=== PATIENT | female | born 1965 | race Caucasian/White ===

== ENCOUNTER → 2016-12-30 | Outpatient (CLI) | payer BC ==
[~2016-12-30] MED LIST: MISCCAP80 PO
--- NOTE | 2016-12-30 08:55 | DIAGNOSTIC IMAGING REPORT ---
L-SPINE MIN 4 VIEWS ROUTINE CLINICAL HISTORY: Low back pain COMPARISON STUDY: No previous studies for comparison. FINDINGS: No acute fractures or subluxations are visualized. There is mild disc space narrowing at the L4-5 level, and marked disc space narrowing at the L5-S1 level. There is no pathologic bowel dilatation. There are surgical clips projected over the right SI joint and in the right upper quadrant consistent with a prior cholecystectomy. There is a 3 mm calcification projected over the lower pole the right kidney on the AP film. A small renal calculus cannot be excluded although this is not visualized with certainty on the oblique films, a finding which favors overlying enteric contents IMPRESSION: 1. No fractures or subluxations identified 2. Degenerative changes at the L4-5 and L5-S1 levels. Electronically signed by: Randolph Escobar M.D. 12/30/2016 8:54 AM Dictated Date/Time: 12/30/2016 8:52 AM
[2016-12-30 11:00] LABS: BASO % 0.2 %; BASO ABS # 0.01 K/uL (0-0.2); COMPLETE YES; EOS % 2.2 %; HEMATOCRIT 44.6 % (37-47); LYMPH % 20.1 %; LYMPH ABS # 1.29 K/uL (1.2-3.4); MEAN CELL VOLUME 86.6 fL (80-100); MEAN CORPUSCULAR HEMOGLOBIN 29.3 pg (25-34); MEAN CORPUSCULAR HGB CONC 33.9 g/dl (32-36); MONO % 8.9 %; NEUT % 68.6 %; PLATELET COUNT 261 K/uL (130-400); RED BLOOD COUNT 5.15 M/uL (4.2-5.4); WHITE BLOOD COUNT 6.43 K/uL (4.8-10.8)
[2016-12-30 11:15] LABS: BLOOD UREA NITROGEN 15 mg/dl (7-18); BUN/CREATININE RATIO 13.5 (10-20); CALCIUM 9.1 mg/dl (8.5-10.1); CARBON DIOXIDE 30 mmol/L (21-32); CHLORIDE 103 mmol/L (98-107); CHOLESTEROL 222 mg/dl (0-200); GLUCOSE 99 mg/dl (70-99); POTASSIUM 3.8 mmol/L (3.5-5.1); SODIUM 141 mmol/L (136-145)
[2016-12-30 11:20] LABS: ALB/GLOB RATIO 1.1 (0.9-2); ALKALINE PHOSPHATASE 105 U/L (45-117); ALT/SGPT 33 U/L (12-78); AST/SGOT 22 U/L (15-37); HDL CHOLESTEROL 56 mg/dl; LDL CHOLESTEROL CALCULATED 140 mg/dl; TRIGLYCERIDES 128 mg/dl (0-150); VERY LOW DENSITY LIPOPROT CALC 26 mg/dl
== END | disposition home or self-care (01) ==
LOC: C.RADBC 08:13
PROVIDERS: ATTEND Family Medicine
DX: M54.5 Low back pain (principal); Z13.0 Encounter for screening for diseases of the blood and blood-forming organs and certain disorders involving the immune mechanism; Z13.220 Encounter for screening for lipoid disorders

== ENCOUNTER → 2017-01-04 | Outpatient (CLI) | payer BC ==
--- NOTE | 2017-01-04 08:35 | DIAGNOSTIC IMAGING REPORT ---
ABDOMINAL AORTIC ULTRASOUND CLINICAL HISTORY: Z82.49 Family history of abdominal aortic aneurysm (AAA) COMPARISON STUDY: Abdominal ultrasound 10/08/2015. FINDINGS: Normal caliber abdominal aorta measuring up to 2.3 cm in diameter. The iliac arteries are also normal in caliber. No evidence for an abdominal aortic aneurysm. IMPRESSION: Normal caliber abdominal aorta. Electronically signed by: Fareed Caldwell M.D. 01/04/2017 8:33 AM Dictated Date/Time: 01/04/2017 8:32 AM
== END | disposition home or self-care (01) ==
LOC: C.ULTR 08:04
PROVIDERS: ATTEND Family Medicine
DX: Z82.49 Family history of ischemic heart disease and other diseases of the circulatory system (principal)

== ENCOUNTER 2018-03-21 18:10 | Emergency (ER) | payer BC ==
[~2018-03-21] VITALS: Ht 170.2 cm; Wt 90.6 kg
[2018-03-21 18:20] VITALS: TEMP 36.8; Ht 170.2 cm; Wt 90.6 kg
--- NOTE | 2018-03-21 18:36 | EMERGENCY ROOM VISIT NOTE ---
History Report prepared by Sydney: Alberto Aviles Under the Supervision of: Dr. Carlos Eduardo Mann M.D. First contact with patient: 18:23 Chief Complaint: FALL Stated Complaint: FALL, BACK PAIN History of Present Illness The patient is a 53 year old female who presents to the Emergency Room with complaints of persistent head ache secondary to a mechanical fall that occurred 1.5 hours ago. She currently rates her pain a 2/10 in severity. She reports head pain and left shoulder pain. She states that she was walking upstairs while carrying a load of groceries. She notes the weight of the groceries shifted backward and she fell backward, though twisted to the side and hit her head on a brick wall. She notes that her teeth clamped together. She denies any tongue bites. She reports upper jaw pain. She states that she was able to get onto the stretcher, though she notes movement worsened her back pain. She states the pain in her back is more towards the middle and caused shortness of breath. She could not tell if she has neck pain because she has a cervical collar on. She denies any abdominal pain or hip pain. She denies any numbness or weakness. She denies any underlying medical problems. She reports shivering at the moment. She drinks alcohol, though denies any alcohol use today. She denies any smoking history. Source of History: patient Onset: 1.5 hours ago Position: head Symptom Intensity: 2/10 Quality: ache Timing: other (persistent) Associated Symptoms: + SOB, + abdominal pain, + back pain, No weakness, No numbness Note: Notes left shoulder pain and jaw pain. Denies tongue bites and hip pain. Review of Systems See HPI for pertinent positives & negatives. A total of 10 systems reviewed and were otherwise negative. Past Medical & Surgical Medical Problems: (1) Hemorrhoids Surgical Problems: (1) H/O bilateral breast reduction surgery (2) History of appendectomy Old medical records were reviewed. Nurse's notes were reviewed and I agree with. Family History Cancer Diabetes mellitus Hypertension Social History Smoking Status: Never Smoker Smokeless Tobacco Use: No Alcohol Use: occasionally Drug Use: none Marital Status: Housing Status: lives with family Occupation Status: employed Current/Historical Medications Scheduled PRN Oxycodone Immediate Rel Tab (Roxicodone Ir), 1-2 TAB PO Q4H PRN for Severe Pain Allergies Coded Allergies: No Known Allergies (Unverified , 01/18/17) Physical Exam Vital Signs Date Time Temp Pulse Resp B/P (MAP) Pulse Ox O2 Delivery O2 Flow Rate FiO2 03/21/18 22:04 82 20 139/100 99 03/21/18 20:08 75 20 144/93 95 Room Air 03/21/18 18:20 36.8 75 24 152/95 100 Room Air Physical Exam General: Well developed well nourished in no acute distress, breathing comfortably on room air. Normal speech. Glascow coma score of 15. Mildly uncomfortable. Wearing cervical collar. HEENT: Normal cephalic atraumatic. Pupils are equal round and reactive to light. Extraocular movements are intact. Oropharynx is pink with moist mucous membranes. No swelling of the mouth lips or tongue. No hyphema. No blood from the nose or septal hematoma. Mid face is stable. No dental trauma or malocclusion. Neck: Collared with a midline trachea. No meningeal signs or stiffness. No midline tenderness. No Stridor. Chest: Clear to auscultation bilaterally. No wheezes or rhonchi. No increased work of breathing. No subcutaneous air. No seat belt park or external signs of trauma. Mild tenderness to ribs bilaterally. Heart: Regular rate and rhythm without murmurs or gallops. Abdomen: Soft nontender, nondistended without rebound guarding or rigidity. No seatbelt park or external signs of trauma Extremities: No cyanosis clubbing or edema. No calf tenderness or asymmetry. Mild tenderness to left shoulder with movement, no evidence of dislocation. Spine/Back. Non tender to palpation. No CVA tenderness. Skin: Good turgor without rashes. Neurologic exam: Cranial nerves two through 12 are intact. Motor and sensation are intact and symmetrical throughout. Normal level of consciousness Medical Decision & Procedures ER Provider Diagnostic Interpretation: Radiology results as stated below per my review and radiologist interpretation: CT SCAN OF THE CHEST, ABDOMEN, AND PELVIS WITH IV CONTRAST CLINICAL HISTORY: Trauma. Fall down stairs. COMPARISON STUDY: Chest x-ray dated 09/05/2015. TECHNIQUE: Following the IV administration of 96 of Optiray 320, CT scan of the chest, abdomen, and pelvis was performed from the thoracic inlet to the proximal femora. Images are reviewed in the axial, sagittal, and coronal planes. IV contrast was administered without complication. Automated dose control exposure was utilized. A dose lowering technique was utilized adhering to the principles of ALARA. FINDINGS: CHEST: Thyroid: Imaged portions of the thyroid gland are normal in size and attenuation. Thoracic aorta: The thoracic aorta is normal in caliber and demonstrates standard 3-vessel arch anatomy. No dissection is seen. Pulmonary vasculature: The pulmonary trunk is normal in caliber. There are no filling defects identified in the central pulmonary vessels to indicate pulmonary embolus. Note that this examination was not protocoled for evaluation of the pulmonary arteries. Heart: The heart is normal in size and without pericardial effusion. Lungs and pleural spaces: There is no airspace consolidation, pleural effusion, or pneumothorax. The trachea and central airways are clear. There is a 6 cm pleural-based nodule in the right upper lobe seen on image #36. A 5 mm right lower lobe pulmonary nodule is seen on image #138. A 3 mm pleural-based nodules in the right lower lobe on image #165. Mediastinum: There is no mediastinal hematoma or lymphadenopathy. Luz: Clear. Axillae: There is no axillary lymphadenopathy. Bony thorax: There is a minimal age indeterminant superior endplate compression deformity of T4 and a mild acute appearing superior endplate compression deformity of T7. Minimal paravertebral edema is seen at this level. The remainder the bony thorax appears intact. No lytic or blastic lesions are identified. ABDOMEN AND PELVIS: Liver: The contrast-enhanced liver is normal in size, contour, and attenuation. There is no intrahepatic or ductal dilatation. The hepatic veins and portal veins are patent. A 12 mm low-attenuation lesion in the left hepatic lobe seen on image #48 is incompletely characterized but demonstrates peripheral foci of peripheral nodular enhancement and likely represents a small hemangioma. This is unchanged dating back to 2014 and of doubtful significance. Gallbladder: Surgically absent noting clips in the gallbladder fossa. Spleen: Spleen is normal in size. There are numerous splenic masses identified which measure up to 5 cm. These are similar in appearance dating back to 2014 and are statistically of doubtful significance, likely representing hemangiomas or hamartomas. Pancreas: Unremarkable. Adrenal glands: Unremarkable. Kidneys: The contrast enhanced kidneys are normal in size and without hydronephrosis. The kidneys enhance symmetrically. Abdominal vasculature: The abdominal aorta is normal in course and caliber. Bowel: There is moderate colonic diverticulosis without CT evidence of acute diverticulitis. No bowel obstruction is seen. The appendix is not identified and reported surgically absent. Peritoneum: There is no intraperitoneal free air or abdominal ascites. There is a fat-containing umbilical hernia. Lymphadenopathy: None. Pelvic viscera: The bladder, uterus, and adnexa are normal as visualized. Skeletal structures: The lumbosacral spine and bony pelvis appear intact. Mild lumbosacral spondylosis is observed. No lytic or blastic lesions are seen. IMPRESSION: 1. There is a mild and acute appearing superior endplate compression fracture of T7. 2. There is a minimal and age indeterminant superior endplate compression deformity of T4. 3. The remainder of the bony thorax appears intact, as do the lumbosacral spine and bony pelvis. 4. There is no airspace consolidation, pleural effusion, or pneumothorax. 5. There is no evidence of solid organ injury in the abdomen or pelvis. 6. Moderate colonic diverticulosis without CT evidence of acute diverticulitis. 7. Numerous splenic masses are similar in appearance to the 09/20/2015 examination. These are pathologically indeterminant but statistically of doubtful significance, likely representing hemangiomas or hamartomas. 8. There are pulmonary and pleural-based nodules as above measuring up to 6 mm. These are pathologically indeterminant and can be followed as per the Fleischner criteria. See below. Please refer to below summary of Fleischner criteria recommendations for follow-up of incidental CT nodules (Lidia Broussard, Guidelines for management of small pulmonary nodules detected on CT scans: A statement from the Fleischner Society, Radiology 237: [phone].) SOLID NODULES Solitary nodule size: <6 mm * low risk patients: no follow-up needed * high risk patients: optional CT at 12 months Solitary nodule size: 6-8 mm * low risk patients: follow-up at 6-12 months, then consider further follow-up at 18-24 months * high risk patients: initial follow-up CT at 6-12 months and then at 18-24 months if no change Solitary nodule size: >8 mm * either low or high risk patients - consider follow-up CT at 3 months, and/or CT-PET, and/or biopsy Multiple nodules size: <6 mm * low risk patients: no routine follow-up * high risk patients: optional CT at 12 months Multiple nodules size: 6-8 mm * low risk patients: follow-up at 3-6 months, then consider further follow-up at 18-24 months * high risk patients: follow-up at 3-6 months, then at 18-24 months if no change Multiple nodules size: >8 mm * low risk patients: follow-up at 3-6 months, then consider further follow-up at 18-24 months * high risk patients: follow-up at 3-6 months, then at 18-24 months if no change Note: newly detected indeterminate nodule in persons 35 years of age or older. * low risk patients: minimal or absent history of smoking and/or other known risk factors * high risk patients: history of smoking or of other known risk factors (e.g. first degree relative with lung cancer, or exposure to asbestos, radon, uranium) * if a nodule up to 8 mm is partly solid or is ground glass further follow-up is required after 24 months to exclude possible slow growing adenocarcinoma (KRAIG) SUBSOLID NODULES Solitary pure ground-glass nodule * nodule size <6 mm - no CT follow-up required * nodule size >=6 mm - follow-up CT at 6-12 months, then every 2 years until 5 years Solitary part-solid nodule * nodule size <6 mm - no CT follow-up required * nodule size >=6 mm - follow-up CT at 3-6 months. If unchanged, and solid component remains <6 mm, then annual follow-up for 5 years Multiple subsolid nodules * nodule size <6 mm - follow-up CT at 3-6 months, consider further follow-up at 2 and 4 years if stable * nodule size >=6 mm - follow-up CT at 3-6 months, subsequent management based on the most suspicious nodule(s) Electronically signed by: Linus Nelson M.D. 03/21/2018 7:56 PM Dictated Date/Time: 03/21/2018 7:[address] SCAN OF THE CERVICAL SPINE CLINICAL HISTORY: Trauma. Fall down stairs. COMPARISON STUDY: No priors. TECHNIQUE: CT scan of the cervical spine is performed from the skull base to the upper thoracic spine. Images are reviewed in the axial, sagittal, and coronal planes. IV contrast was not administered for this examination. A dose lowering technique was utilized adhering to the principles of ALARA. CT DOSE: 2897.47 mGy.cm FINDINGS: Skeletal structures: The skeletal structures are well mineralized. There is no evidence of fracture or subluxation involving the cervical spine. Vertebral body height and alignment are maintained. There is straightening of the cervical lordosis with reversal centered at C5. Anterior osteophytes are seen in the lower cervical region. The odontoid process and lateral masses are intact. The atlantoaxial articulation is preserved noting productive degenerative change. The spinous processes appear intact. Intervertebral discs: There is moderate disc space narrowing at C5-C6 and C6-C7. Mild disc space narrowing is seen at C4-C5. Central canal: Posterior disc osteophyte complexes at C5-C6 and C6-C7 likely contribute to mild acquired compromise of the central canal. Soft tissues: The prevertebral and paraspinous soft tissues are within normal limits. Calvarium: The visualized calvarium at the skull base appears intact. Brain parenchyma: Partially visualized brain parenchyma the skull base is within normal limits. Sinuses and mastoids: The visualized paranasal sinuses are clear. The mastoid air cells are well pneumatized. Lung apices: Clear as visualized. IMPRESSION: There is no evidence of fracture or subluxation involving the cervical spine. Electronically signed by: Linus Nelson M.D. 03/21/2018 7:42 PM Dictated Date/Time: 03/21/2018 7:[address] SCAN OF THE CHEST, ABDOMEN, AND PELVIS WITH IV CONTRAST CLINICAL HISTORY: Trauma. Fall down stairs. COMPARISON STUDY: Chest x-ray dated 09/05/2015. TECHNIQUE: Following the IV administration of 96 of Optiray 320, CT scan of the chest, abdomen, and pelvis was performed from the thoracic inlet to the proximal femora. Images are reviewed in the axial, sagittal, and coronal planes. IV contrast was administered without complication. Automated dose control exposure was utilized. A dose lowering technique was utilized adhering to the principles of ALARA. FINDINGS: CHEST: Thyroid: Imaged portions of the thyroid gland are normal in size and attenuation. Thoracic aorta: The thoracic aorta is normal in caliber and demonstrates standard 3-vessel arch anatomy. No dissection is seen. Pulmonary vasculature: The pulmonary trunk is normal in caliber. There are no filling defects identified in the central pulmonary vessels to indicate pulmonary embolus. Note that this examination was not protocoled for evaluation of the pulmonary arteries. Heart: The heart is normal in size and without pericardial effusion. Lungs and pleural spaces: There is no airspace consolidation, pleural effusion, or pneumothorax. The trachea and central airways are clear. There is a 6 cm pleural-based nodule in the right upper lobe seen on image #36. A 5 mm right lower lobe pulmonary nodule is seen on image #138. A 3 mm pleural-based nodules in the right lower lobe on image #165. Mediastinum: There is no mediastinal hematoma or lymphadenopathy. Luz: Clear. Axillae: There is no axillary lymphadenopathy. Bony thorax: There is a minimal age indeterminant superior endplate compression deformity of T4 and a mild acute appearing superior endplate compression deformity of T7. Minimal paravertebral edema is seen at this level. The remainder the bony thorax appears intact. No lytic or blastic lesions are identified. ABDOMEN AND PELVIS: Liver: The contrast-enhanced liver is normal in size, contour, and attenuation. There is no intrahepatic or ductal dilatation. The hepatic veins and portal veins are patent. A 12 mm low-attenuation lesion in the left hepatic lobe seen on image #48 is incompletely characterized but demonstrates peripheral foci of peripheral nodular enhancement and likely represents a small hemangioma. This is unchanged dating back to 2014 and of doubtful significance. Gallbladder: Surgically absent noting clips in the gallbladder fossa. Spleen: Spleen is normal in size. There are numerous splenic masses identified which measure up to 5 cm. These are similar in appearance dating back to 2015 and are statistically of doubtful significance, likely representing hemangiomas or hamartomas. Pancreas: Unremarkable. Adrenal glands: Unremarkable. Kidneys: The contrast enhanced kidneys are normal in size and without hydronephrosis. The kidneys enhance symmetrically. Abdominal vasculature: The abdominal aorta is normal in course and caliber. Bowel: There is moderate colonic diverticulosis without CT evidence of acute diverticulitis. No bowel obstruction is seen. The appendix is not identified and reported surgically absent. Peritoneum: There is no intraperitoneal free air or abdominal ascites. There is a fat-containing umbilical hernia. Lymphadenopathy: None. Pelvic viscera: The bladder, uterus, and adnexa are normal as visualized. Skeletal structures: The lumbosacral spine and bony pelvis appear intact. Mild lumbosacral spondylosis is observed. No lytic or blastic lesions are seen. IMPRESSION: 1. There is a mild and acute appearing superior endplate compression fracture of T7. 2. There is a minimal and age indeterminant superior endplate compression deformity of T4. 3. The remainder of the bony thorax appears intact, as do the lumbosacral spine and bony pelvis. 4. There is no airspace consolidation, pleural effusion, or pneumothorax. 5. There is no evidence of solid organ injury in the abdomen or pelvis. 6. Moderate colonic diverticulosis without CT evidence of acute diverticulitis. 7. Numerous splenic masses are similar in appearance to the 09/20/2015 examination. These are pathologically indeterminant but statistically of doubtful significance, likely representing hemangiomas or hamartomas. 8. There are pulmonary and pleural-based nodules as above measuring up to 6 mm. These are pathologically indeterminant and can be followed as per the Fleischner criteria. See below. Please refer to below summary of Fleischner criteria recommendations for follow-up of incidental CT nodules (Lidia Broussard, Guidelines for management of small pulmonary nodules detected on CT scans: A statement from the Fleischner Society, Radiology 237: [phone].) SOLID NODULES Solitary nodule size: <6 mm * low risk patients: no follow-up needed * high risk patients: optional CT at 12 months Solitary nodule size: 6-8 mm * low risk patients: follow-up at 6-12 months, then consider further follow-up at 18-24 months * high risk patients: initial follow-up CT at 6-12 months and then at 18-24 months if no change Solitary nodule size: >8 mm * either low or high risk patients - consider follow-up CT at 3 months, and/or CT-PET, and/or biopsy Multiple nodules size: <6 mm * low risk patients: no routine follow-up * high risk patients: optional CT at 12 months Multiple nodules size: 6-8 mm * low risk patients: follow-up at 3-6 months, then consider further follow-up at 18-24 months * high risk patients: follow-up at 3-6 months, then at 18-24 months if no change Multiple nodules size: >8 mm * low risk patients: follow-up at 3-6 months, then consider further follow-up at 18-24 months * high risk patients: follow-up at 3-6 months, then at 18-24 months if no change Note: newly detected indeterminate nodule in persons 35 years of age or older. * low risk patients: minimal or absent history of smoking and/or other known risk factors * high risk patients: history of smoking or of other known risk factors (e.g. first degree relative with lung cancer, or exposure to asbestos, radon, uranium) * if a nodule up to 8 mm is partly solid or is ground glass further follow-up is required after 24 months to exclude possible slow growing adenocarcinoma (KRAIG) SUBSOLID NODULES Solitary pure ground-glass nodule * nodule size <6 mm - no CT follow-up required * nodule size >=6 mm - follow-up CT at 6-12 months, then every 2 years until 5 years Solitary part-solid nodule * nodule size <6 mm - no CT follow-up required * nodule size >=6 mm - follow-up CT at 3-6 months. If unchanged, and solid component remains <6 mm, then annual follow-up for 5 years Multiple subsolid nodules * nodule size <6 mm - follow-up CT at 3-6 months, consider further follow-up at 2 and 4 years if stable * nodule size >=6 mm - follow-up CT at 3-6 months, subsequent management based on the most suspicious nodule(s) Electronically signed by: Linus Nelson M.D. 03/21/2018 7:56 PM Dictated Date/Time: 03/21/2018 7:[address] SCAN OF THE BRAIN WITHOUT IV CONTRAST CLINICAL HISTORY: Trauma. Fall down stairs. COMPARISON STUDY: CT of the brain dated 08/30/2006. TECHNIQUE: Unenhanced axial CT scan of the brain is performed from the vertex to the skull base. A dose lowering technique was utilized adhering to the principles of ALARA. FINDINGS: Brain parenchyma: The brain parenchyma is normal in appearance. There is no hemorrhage, mass effect, or evidence of acute territorial ischemia by CT criteria. Henderson-white matter is preserved. No extra-axial fluid collection is seen. Ventricles, sulci, cisterns: Normal in configuration. Intracranial vasculature: The visualized intracranial vasculature at the skull base is normal in appearance. Calvarium: There is no depressed calvarial fracture. Sinuses and mastoids: The visualized paranasal sinuses are clear. The mastoid air cells are well pneumatized. Orbits: The bony orbits are grossly intact. IMPRESSION: No acute intracranial abnormality. Electronically signed by: Linus Nelson M.D. 03/21/2018 7:38 PM Dictated Date/Time: 03/21/2018 7:[address] SCAN OF THE FACIAL BONES WITHOUT IV CONTRAST CLINICAL HISTORY: Trauma. Fall down stairs. COMPARISON STUDY: CT scan of the paranasal sinuses dated 08/30/2006. TECHNIQUE: High-resolution CT scan of the facial bones is performed. Images are reviewed in the axial, sagittal, and coronal planes. IV contrast was not administered for this examination. A dose lowering technique was utilized adhering to the principles of ALARA. FINDINGS: The skeletal structures are well mineralized. There is no evidence of facial bone fracture. The bony orbits are intact and the orbital contents are within normal limits. The zygomatic arches, nasal bones, and pterygoid plates are preserved. The maxilla and mandible are intact. There are no layering blood products within the paranasal sinuses. The sinuses and mastoids are clear. The visualized calvarium and upper cervical spine are maintained. Partially imaged brain parenchyma is within normal limits. IMPRESSION: There is no evidence of facial bone fracture. Electronically signed by: Linus Nelson M.D. 03/21/2018 8:06 PM Dictated Date/Time: 03/21/2018 8:[address] SCAN OF THE THORACIC SPINE WITHOUT IV CONTRAST CLINICAL HISTORY: Trauma. Fall down stairs. COMPARISON STUDY: CT scan of the chest performed concurrently on 03/21/2018. TECHNIQUE: CT scan of the thoracic spine is performed from the lower cervical spine to the upper lumbar spine. Images are reviewed in the axial, sagittal, and coronal planes. IV contrast was not administered specifically for this examination. There is IV contrast present from the concurrently performed CT scan of the chest. A dose lowering technique was utilized adhering to the principles of ALARA. FINDINGS: The skeletal structures are well mineralized. There is a mild and acute-appearing superior endplate compression fracture of T7. Mild paravertebral edema is noted at this level. No retropulsed fragments are identified. There is a minimal and age indeterminant superior endplate compression deformity of T4. Vertebral body height is otherwise maintained throughout the thoracic spine. Alignment is preserved. The transverse and spinous processes appear intact. The disc spaces appear maintained. There is no evidence of large disc herniation or central canal stenosis. Tiny anterior osteophytes are seen throughout. No lytic or blastic lesion is identified. The visualized posterior ribs appear intact. The paraspinous soft tissues are normal in appearance. No airspace consolidation or pleural effusion is identified. A 6 cm pleural-based nodule is noted in the right upper lobe on image #47. See report of chest CT performed concurrently for detailed intrathoracic findings. IMPRESSION: 1. There is a mild and acute-appearing superior endplate compression fracture of T7. No retropulsed fragments are identified. 2. There is a minimal and age indeterminant superior endplate compression deformity of T4. 3. No additional findings are concerning for acute fracture involving the thoracic spine. There is no malalignment. Dictated: 03/21/2018 8:07 PM Transcribed: 03/21/2018 8:31 PM Violeta Electronically signed by: Linus Nelson M.D. 03/21/2018 8:37 PM Dictated Date/Time: 03/21/2018 8:07 PM LEFT SHOULDER 3 VIEWS CLINICAL HISTORY: Left shoulder pain. FINDINGS: 3 views of the left shoulder are correlated with chest CT performed the same day 03/21/2018. The skeletal structures are well mineralized. There is no fracture or dislocation identified in the left shoulder. The glenohumeral and acromioclavicular joints are preserved. The overlying soft tissues are within normal limits. The visualized left lung parenchyma appears clear. IMPRESSION: No acute bony abnormality is seen in the left shoulder. Electronically signed by: Linus Nelson M.D. 03/21/2018 9:01 PM Dictated Date/Time: 03/21/2018 9:00 PM Laboratory Results 03/21/18 18:50 Red Blood Count 4.82, Mean Corpuscular Volume 85.1, Mean Corpuscular Hemoglobin 28.8, Mean Corpuscular Hemoglobin Concent 33.9, Mean Platelet Volume 10.2, Neutrophils (%) (Auto) 68.4, Lymphocytes (%) (Auto) 23.6, Monocytes (%) (Auto) 6.5, Eosinophils (%) (Auto) 1.0, Basophils (%) (Auto) 0.2, Neutrophils # (Auto) 3.91, Lymphocytes # (Auto) 1.35, Monocytes # (Auto) 0.37, Eosinophils # (Auto) 0.06, Basophils # (Auto) 0.01 03/21/18 19:32 Test 03/21/18 18:50 03/21/18 18:56 03/21/18 19:32 White Blood Count 5.72 K/uL (4.8-10.8) Red Blood Count 4.82 M/uL (4.2-5.4) Hemoglobin 13.9 g/dL (12.0-16.0) Hematocrit 41.0 % (37-47) Mean Corpuscular Volume 85.1 fL (80-100) Mean Corpuscular Hemoglobin 28.8 pg (25-34) Mean Corpuscular Hemoglobin Concent 33.9 g/dl (32-36) Platelet Count 228 K/uL (130-400) Mean Platelet Volume 10.2 fL (7.4-10.4) Neutrophils (%) (Auto) 68.4 % Lymphocytes (%) (Auto) 23.6 % Monocytes (%) (Auto) 6.5 % Eosinophils (%) (Auto) 1.0 % Basophils (%) (Auto) 0.2 % Neutrophils # (Auto) 3.91 K/uL (1.4-6.5) Lymphocytes # (Auto) 1.35 K/uL (1.2-3.4) Monocytes # (Auto) 0.37 K/uL (0.11-0.59) Eosinophils # (Auto) 0.06 K/uL (0-0.5) Basophils # (Auto) 0.01 K/uL (0-0.2) RDW Standard Deviation 42.8 fL (36.4-46.3) RDW Coefficient of Variation 14.0 % (11.5-14.5) Immature Granulocyte % (Auto) 0.3 % Immature Granulocyte # (Auto) 0.02 K/uL (0.00-0.02) Bedside Hemoglobin 13.9 g/dl (12.0-16.0) Bedside Hematocrit 41 % (37-47) Bedside Sodium 137 mEq/L (135-144) Bedside Potassium 6.8 mEq/L (3.3-5.0) Bedside Chloride 102 mEq/L (101-112) Bedside Total CO2 31 mEq/l (24-31) Bedside Blood Urea Nitrogen 26 mg/dl (7-18) Bedside Creatinine 1.0 mg/dl (0.6-1.3) Bedside Glucose (other) 102 mg/dl (70-99) Bedside Ionized Calcium (Viv) 1.05 mmol/l (1.12-1.32) Anion Gap 6.0 mmol/L (3-11) Est Creatinine Clear Calc Drug Dose 74.3 ml/min Estimated GFR () 74.0 Estimated GFR (Non- 63.8 BUN/Creatinine Ratio 17.1 (10-20) Calcium Level 8.4 mg/dl (8.5-10.1) Laboratory studies as stated above per my review. Medications Administered Medications (Trade) Dose Ordered Sig/Sandra Route Start Time Stop Time Status Last Admin Dose Admin Oxycodone HCl (Roxicodone Immediate Rel 5MG Home Pack) 1 homepack UD ONCE PO 03/21/18 21:30 03/21/18 21:31 DC 03/21/18 21:30 1 HOMEPACK ED Course 1823: Past medical records reviewed. The patient was evaluated in room A3, and a complete history and physical examination were performed. 1951: I reassessed the patient at this time. I updated the patient. I removed her cervical collar. 2030: I reassessed the patient at this time. She is doing better. 2129: Ordered Oxycodone 1 homepack PO 2131: I reassessed the patient at this time. I discussed the results and treatment plan with the patient. I answered all pertaining questions that she had. She expressed understanding and verbalized agreement. The patient will be discharged home. Medical Decision Differentials include, but are not limited to: traumatic injuries, spinal injury , head injury, and fractures. This patient comes in as described above. She suffered a mechanical fall and has thoracic back pain she also hit her head. There is no loss of consciousness no syncope or anything to suggest this is a mechanical fall. IV access established and she was offered pain medication but declined. He did a CAT scan of her head face neck chest abdomen and pelvis as well as thoracic reconstructions. She has a T7 anterior compression fracture without any retropulsion. She has an age-indeterminate T4 as well. She is also complaining of left shoulder pain and did an x-ray and there is no abnormalities. She is tender over the AC joint and may have a mild ACC separation/strain she was placed on a sling. She strongly desires to go home. He will use ibuprofen for pain. For breakthrough pain, she can use OxyIR 5 mg, 1 or 2 pills every 4-6 hours as needed. She was warned that this could make her drowsy and do not take before drinking, driving, working. She should follow -up with orthopedist or regular doctor this week for recheck. She should return if: increasing pain, worsening of symptoms, numbness or weakness, any new problems or concerns. She is happy the plan and discharged to home. Medication Reconcilliation Current Medication List: was personally reviewed by me Blood Pressure Screening Patient's blood pressure: Elevated blood pressure Blood pressure disposition: Referred to PCP Impression Primary Impression: Thoracic compression fracture Additional Impressions: Fall Concussion Separation of left acromioclavicular joint Scribe Attestation The scribe's documentation has been prepared under my direction and personally reviewed by me in its entirety. I confirm that the note above accurately reflects all work, treatment, procedures, and medical decision making performed by me. Departure Information Dispostion Home / Self-Care Prescriptions Oxycodone Immediate Rel Tab (ROXICODONE IR) 5 Mg Tab 1-2 TAB PO Q4H Y for Severe Pain, #24 TAB Prov: Carlos Eduardo Mann M.D. 03/21/18 Referrals Valentin Joe D.O. (PCP) Forms HOME CARE DOCUMENTATION FORM, IMPORTANT VISIT INFORMATION Patient Instructions My [facility] Additional Instructions Rest. Drink plenty of fluids. Return if: Worsening of symptoms, increasing pain, any new problems or concerns Use ibuprofen 600 mg every 6 hours, take with food For more severe pain, may use OxyIR 5 mg, 1 or 2 pills every 4 -6 hours as needed OxyIR may make you drowsy do not take before drinking, driving, working Follow-up with your doctor in the next 1 to 2 days for recheck. Problem Qualifiers
[2018-03-21 19:16] LABS: BASO % 0.2 %; BASO ABS # 0.01 K/uL (0-0.2); EOS ABS # 0.06 K/uL (0-0.5); HEMOGLOBIN 13.9 g/dL (12.0-16.0); IG# 0.02 K/uL (0.00-0.02); LYMPH % 23.6 %; LYMPH ABS # 1.35 K/uL (1.2-3.4); MEAN CELL VOLUME 85.1 fL (80-100); MEAN CORPUSCULAR HEMOGLOBIN 28.8 pg (25-34); MEAN CORPUSCULAR HGB CONC 33.9 g/dl (32-36); MEAN PLATELET VOLUME 10.2 fL (7.4-10.4); MONO % 6.5 %; MONO ABS # 0.37 K/uL (0.11-0.59); NEUT % 68.4 %; NEUT ABS # 3.91 K/uL (1.4-6.5); PLATELET COUNT 228 K/uL (130-400); RED CELL DISTRIBUTION WIDTH SD 42.8 fL (36.4-46.3); WHITE BLOOD COUNT 5.72 K/uL (4.8-10.8)
[2018-03-21 19:27] LABS: ISTAT IONIZED CALCIUM 1.05 mmol/l (1.12-1.32); ISTAT POTASSIUM 6.8 mEq/L (3.3-5.0)
--- NOTE | 2018-03-21 19:39 | DIAGNOSTIC IMAGING REPORT ---
CT SCAN OF THE BRAIN WITHOUT IV CONTRAST CLINICAL HISTORY: Trauma. Fall down stairs. COMPARISON STUDY: CT of the brain dated 08/30/2006. TECHNIQUE: Unenhanced axial CT scan of the brain is performed from the vertex to the skull base. A dose lowering technique was utilized adhering to the principles of ALARA. FINDINGS: Brain parenchyma: The brain parenchyma is normal in appearance. There is no hemorrhage, mass effect, or evidence of acute territorial ischemia by CT criteria. Henderson-white matter is preserved. No extra-axial fluid collection is seen. Ventricles, sulci, cisterns: Normal in configuration. Intracranial vasculature: The visualized intracranial vasculature at the skull base is normal in appearance. Calvarium: There is no depressed calvarial fracture. Sinuses and mastoids: The visualized paranasal sinuses are clear. The mastoid air cells are well pneumatized. Orbits: The bony orbits are grossly intact. IMPRESSION: No acute intracranial abnormality. Electronically signed by: Linus Nelson M.D. 03/21/2018 7:38 PM Dictated Date/Time: 03/21/2018 7:36 PM
--- NOTE | 2018-03-21 19:43 | DIAGNOSTIC IMAGING REPORT ---
CT SCAN OF THE CERVICAL SPINE CLINICAL HISTORY: Trauma. Fall down stairs. COMPARISON STUDY: No priors. TECHNIQUE: CT scan of the cervical spine is performed from the skull base to the upper thoracic spine. Images are reviewed in the axial, sagittal, and coronal planes. IV contrast was not administered for this examination. A dose lowering technique was utilized adhering to the principles of ALARA. CT DOSE: 2897.47 mGy.cm FINDINGS: Skeletal structures: The skeletal structures are well mineralized. There is no evidence of fracture or subluxation involving the cervical spine. Vertebral body height and alignment are maintained. There is straightening of the cervical lordosis with reversal centered at C5. Anterior osteophytes are seen in the lower cervical region. The odontoid process and lateral masses are intact. The atlantoaxial articulation is preserved noting productive degenerative change. The spinous processes appear intact. Intervertebral discs: There is moderate disc space narrowing at C5-C6 and C6-C7. Mild disc space narrowing is seen at C4-C5. Central canal: Posterior disc osteophyte complexes at C5-C6 and C6-C7 likely contribute to mild acquired compromise of the central canal. Soft tissues: The prevertebral and paraspinous soft tissues are within normal limits. Calvarium: The visualized calvarium at the skull base appears intact. Brain parenchyma: Partially visualized brain parenchyma the skull base is within normal limits. Sinuses and mastoids: The visualized paranasal sinuses are clear. The mastoid air cells are well pneumatized. Lung apices: Clear as visualized. IMPRESSION: There is no evidence of fracture or subluxation involving the cervical spine. Electronically signed by: Linus Nelson M.D. 03/21/2018 7:42 PM Dictated Date/Time: 03/21/2018 7:39 PM
[2018-03-21] MEDS ORDERED: OPTIRAY 320 IV PRN (19:45)
--- NOTE | 2018-03-21 19:58 | DIAGNOSTIC IMAGING REPORT ---
CT SCAN OF THE CHEST, ABDOMEN, AND PELVIS WITH IV CONTRAST CLINICAL HISTORY: Trauma. Fall down stairs. COMPARISON STUDY: Chest x-ray dated 09/05/2015. TECHNIQUE: Following the IV administration of 96 of Optiray 320, CT scan of the chest, abdomen, and pelvis was performed from the thoracic inlet to the proximal femora. Images are reviewed in the axial, sagittal, and coronal planes. IV contrast was administered without complication. Automated dose control exposure was utilized. A dose lowering technique was utilized adhering to the principles of ALARA. FINDINGS: CHEST: Thyroid: Imaged portions of the thyroid gland are normal in size and attenuation. Thoracic aorta: The thoracic aorta is normal in caliber and demonstrates standard 3-vessel arch anatomy. No dissection is seen. Pulmonary vasculature: The pulmonary trunk is normal in caliber. There are no filling defects identified in the central pulmonary vessels to indicate pulmonary embolus. Note that this examination was not protocoled for evaluation of the pulmonary arteries. Heart: The heart is normal in size and without pericardial effusion. Lungs and pleural spaces: There is no airspace consolidation, pleural effusion, or pneumothorax. The trachea and central airways are clear. There is a 6 cm pleural-based nodule in the right upper lobe seen on image #36. A 5 mm right lower lobe pulmonary nodule is seen on image #138. A 3 mm pleural-based nodules in the right lower lobe on image #165. Mediastinum: There is no mediastinal hematoma or lymphadenopathy. Luz: Clear. Axillae: There is no axillary lymphadenopathy. Bony thorax: There is a minimal age indeterminant superior endplate compression deformity of T4 and a mild acute appearing superior endplate compression deformity of T7. Minimal paravertebral edema is seen at this level. The remainder the bony thorax appears intact. No lytic or blastic lesions are identified. ABDOMEN AND PELVIS: Liver: The contrast-enhanced liver is normal in size, contour, and attenuation. There is no intrahepatic or ductal dilatation. The hepatic veins and portal veins are patent. A 12 mm low-attenuation lesion in the left hepatic lobe seen on image #48 is incompletely characterized but demonstrates peripheral foci of peripheral nodular enhancement and likely represents a small hemangioma. This is unchanged dating back to 2014 and of doubtful significance. Gallbladder: Surgically absent noting clips in the gallbladder fossa. Spleen: Spleen is normal in size. There are numerous splenic masses identified which measure up to 5 cm. These are similar in appearance dating back to 2014 and are statistically of doubtful significance, likely representing hemangiomas or hamartomas. Pancreas: Unremarkable. Adrenal glands: Unremarkable. Kidneys: The contrast enhanced kidneys are normal in size and without hydronephrosis. The kidneys enhance symmetrically. Abdominal vasculature: The abdominal aorta is normal in course and caliber. Bowel: There is moderate colonic diverticulosis without CT evidence of acute diverticulitis. No bowel obstruction is seen. The appendix is not identified and reported surgically absent. Peritoneum: There is no intraperitoneal free air or abdominal ascites. There is a fat-containing umbilical hernia. Lymphadenopathy: None. Pelvic viscera: The bladder, uterus, and adnexa are normal as visualized. Skeletal structures: The lumbosacral spine and bony pelvis appear intact. Mild lumbosacral spondylosis is observed. No lytic or blastic lesions are seen. IMPRESSION: 1. There is a mild and acute appearing superior endplate compression fracture of T7. 2. There is a minimal and age indeterminant superior endplate compression deformity of T4. 3. The remainder of the bony thorax appears intact, as do the lumbosacral spine and bony pelvis. 4. There is no airspace consolidation, pleural effusion, or pneumothorax. 5. There is no evidence of solid organ injury in the abdomen or pelvis. 6. Moderate colonic diverticulosis without CT evidence of acute diverticulitis. 7. Numerous splenic masses are similar in appearance to the 09/20/2015 examination. These are pathologically indeterminant but statistically of doubtful significance, likely representing hemangiomas or hamartomas. 8. There are pulmonary and pleural-based nodules as above measuring up to 6 mm. These are pathologically indeterminant and can be followed as per the Fleischner criteria. See below. Please refer to below summary of Fleischner criteria recommendations for follow-up of incidental CT nodules (Lidia Broussard, Guidelines for management of small pulmonary nodules detected on CT scans: A statement from the Fleischner Society, Radiology 237: [phone].) SOLID NODULES Solitary nodule size: <6 mm * low risk patients: no follow-up needed * high risk patients: optional CT at 12 months Solitary nodule size: 6-8 mm * low risk patients: follow-up at 6-12 months, then consider further follow-up at 18-24 months * high risk patients: initial follow-up CT at 6-12 months and then at 18-24 months if no change Solitary nodule size: >8 mm * either low or high risk patients - consider follow-up CT at 3 months, and/or CT-PET, and/or biopsy Multiple nodules size: <6 mm * low risk patients: no routine follow-up * high risk patients: optional CT at 12 months Multiple nodules size: 6-8 mm * low risk patients: follow-up at 3-6 months, then consider further follow-up at 18-24 months * high risk patients: follow-up at 3-6 months, then at 18-24 months if no change Multiple nodules size: >8 mm * low risk patients: follow-up at 3-6 months, then consider further follow-up at 18-24 months * high risk patients: follow-up at 3-6 months, then at 18-24 months if no change Note: newly detected indeterminate nodule in persons 35 years of age or older. * low risk patients: minimal or absent history of smoking and/or other known risk factors * high risk patients: history of smoking or of other known risk factors (e.g. first degree relative with lung cancer, or exposure to asbestos, radon, uranium) * if a nodule up to 8 mm is partly solid or is ground glass further follow-up is required after 24 months to exclude possible slow growing adenocarcinoma (KRAIG) SUBSOLID NODULES Solitary pure ground-glass nodule * nodule size <6 mm - no CT follow-up required * nodule size >=6 mm - follow-up CT at 6-12 months, then every 2 years until 5 years Solitary part-solid nodule * nodule size <6 mm - no CT follow-up required * nodule size >=6 mm - follow-up CT at 3-6 months. If unchanged, and solid component remains <6 mm, then annual follow-up for 5 years Multiple subsolid nodules * nodule size <6 mm - follow-up CT at 3-6 months, consider further follow-up at 2 and 4 years if stable * nodule size >=6 mm - follow-up CT at 3-6 months, subsequent management based on the most suspicious nodule(s) Electronically signed by: Linus Nelson M.D. 03/21/2018 7:56 PM Dictated Date/Time: 03/21/2018 7:43 PM
--- NOTE | 2018-03-21 20:08 | DIAGNOSTIC IMAGING REPORT ---
CT SCAN OF THE FACIAL BONES WITHOUT IV CONTRAST CLINICAL HISTORY: Trauma. Fall down stairs. COMPARISON STUDY: CT scan of the paranasal sinuses dated 08/30/2006. TECHNIQUE: High-resolution CT scan of the facial bones is performed. Images are reviewed in the axial, sagittal, and coronal planes. IV contrast was not administered for this examination. A dose lowering technique was utilized adhering to the principles of ALARA. FINDINGS: The skeletal structures are well mineralized. There is no evidence of facial bone fracture. The bony orbits are intact and the orbital contents are within normal limits. The zygomatic arches, nasal bones, and pterygoid plates are preserved. The maxilla and mandible are intact. There are no layering blood products within the paranasal sinuses. The sinuses and mastoids are clear. The visualized calvarium and upper cervical spine are maintained. Partially imaged brain parenchyma is within normal limits. IMPRESSION: There is no evidence of facial bone fracture. Electronically signed by: Linus Nelson M.D. 03/21/2018 8:06 PM Dictated Date/Time: 03/21/2018 8:03 PM
--- NOTE | 2018-03-21 20:31 | DIAGNOSTIC IMAGING REPORT ---
CT SCAN OF THE THORACIC SPINE WITHOUT IV CONTRAST CLINICAL HISTORY: Trauma. Fall down stairs. COMPARISON STUDY: CT scan of the chest performed concurrently on 03/21/2018. TECHNIQUE: CT scan of the thoracic spine is performed from the lower cervical spine to the upper lumbar spine. Images are reviewed in the axial, sagittal, and coronal planes. IV contrast was not administered specifically for this examination. There is IV contrast present from the concurrently performed CT scan of the chest. A dose lowering technique was utilized adhering to the principles of ALARA. FINDINGS: The skeletal structures are well mineralized. There is a mild and acute-appearing superior endplate compression fracture of T7. Mild paravertebral edema is noted at this level. No retropulsed fragments are identified. There is a minimal and age indeterminant superior endplate compression deformity of T4. Vertebral body height is otherwise maintained throughout the thoracic spine. Alignment is preserved. The transverse and spinous processes appear intact. The disc spaces appear maintained. There is no evidence of large disc herniation or central canal stenosis. Tiny anterior osteophytes are seen throughout. No lytic or blastic lesion is identified. The visualized posterior ribs appear intact. The paraspinous soft tissues are normal in appearance. No airspace consolidation or pleural effusion is identified. A 6 cm pleural-based nodule is noted in the right upper lobe on image #47. See report of chest CT performed concurrently for detailed intrathoracic findings. IMPRESSION: 1. There is a mild and acute-appearing superior endplate compression fracture of T7. No retropulsed fragments are identified. 2. There is a minimal and age indeterminant superior endplate compression deformity of T4. 3. No additional findings are concerning for acute fracture involving the thoracic spine. There is no malalignment. Dictated: 03/21/2018 8:07 PM Transcribed: 03/21/2018 8:31 PM Violeta Electronically signed by: Linus Nelson M.D. 03/21/2018 8:37 PM Dictated Date/Time: 03/21/2018 8:07 PM
[2018-03-21 20:36] LABS: CALCIUM 8.4 mg/dl (8.5-10.1); POTASSIUM 3.5 mmol/L (3.5-5.1)
--- NOTE | 2018-03-21 21:03 | DIAGNOSTIC IMAGING REPORT ---
LEFT SHOULDER 3 VIEWS CLINICAL HISTORY: Left shoulder pain. FINDINGS: 3 views of the left shoulder are correlated with chest CT performed the same day 03/21/2018. The skeletal structures are well mineralized. There is no fracture or dislocation identified in the left shoulder. The glenohumeral and acromioclavicular joints are preserved. The overlying soft tissues are within normal limits. The visualized left lung parenchyma appears clear. IMPRESSION: No acute bony abnormality is seen in the left shoulder. Electronically signed by: Linus Nelson M.D. 03/21/2018 9:01 PM Dictated Date/Time: 03/21/2018 9:00 PM
[2018-03-21] MEDS ORDERED: OXYC1TAB3 PO (21:30)
[2018-03-21] MEDS ORDERED: OXYCODONE IR HOME PACK PO ONE (21:30)
[2018-03-21 22:04] VITALS: BP 139/100; PULSE 82; O2SAT 99
== END 2018-03-21 22:06 | disposition home or self-care (01) ==
LOC: EDBD 18:10 → C.EDA 18:11
DX: S22.060A Wedge compression fracture of T7-T8 vertebra, initial encounter for closed fracture (principal); S06.0X0A Concussion without loss of consciousness, initial encounter; S43.102A Unspecified dislocation of left acromioclavicular joint, initial encounter; W10.9XXA Fall (on) (from) unspecified stairs and steps, initial encounter; R06.02 Shortness of breath